=== PATIENT | female | born 1985 | race Hispanic/Latino ===

== ENCOUNTER 2019-02-05 18:30 | Emergency (ER) | payer SELFPAY ==
--- NOTE | 2019-02-05 21:05 | XRay Report ---
PROCEDURE: XR KNEE 3V RT TECHNIQUE: Right knee, 3 views HISTORY: right knee pain COMPARISONS: None available FINDINGS: No acute fracture or dislocation. No joint effusion. No focal osseous lesions. Joint spaces are prese rved. IMPRESSION: Unremarkable exam. This document is electronically signed by Michelle Angel MD., February 05 2019 09:03:35 PM ET
[2019-02-05 22:24] VITALS: BP 156/91
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
[2019-02-06] MEDS ORDERED: BENADRYL PO ONE ×2 (01:09→01:10)
[2019-02-06] MEDS ORDERED: IBUPROFEN ONE (01:09)
[2019-02-06] MEDS ORDERED: TYLENOL ONE (01:09)
[2019-02-06] MEDS ORDERED: REGLAN ONE (01:09)
[2019-02-06] MEDS ORDERED: TYLENOL PO ONE (01:10)
[2019-02-06] MEDS ORDERED: IBUPROFEN PO ONE (01:10)
[2019-02-06] MEDS ORDERED: REGLAN PO ONE (01:10)
== END 2019-02-06 01:24 | disposition home or self-care (01) ==
LOC: ED 18:30
DX: S80.02XA Contusion of left knee, initial encounter (principal); S80.01XA Contusion of right knee, initial encounter; S60.222A Contusion of left hand, initial encounter; S60.221A Contusion of right hand, initial encounter; S00.93XA Contusion of unspecified part of head, initial encounter; F17.200 Nicotine dependence, unspecified, uncomplicated; Z79.899 Other long term (current) drug therapy; V89.2XXA Person injured in unspecified motor-vehicle accident, traffic, initial encounter; Y93.89 Activity, other specified; Y92.488 Other paved roadways as the place of occurrence of the external cause; Y99.8 Other external cause status
CPT/HCPCS: 99283